=== PATIENT | male | born 1960 | race Caucasian/White ===

== ENCOUNTER 2017-08-04 08:58 | Day surgery (SDC) | payer BC ==
[~2017-08-04] VITALS: Ht 167.6 cm; Wt 75.8 kg
[2017-08-04] VITALS (19 sets, daily range): BP systolic 122–148; BP diastolic 64–88; PULSE 62–80; RESP 15–20; Ht 167.6 cm; Wt 75.8 kg
[~2017-08-04 08:58] MED LIST: BACTDS PO; CEPH-443 PO
[2017-08-04] MEDS ORDERED: SOD CHLORIDE 0.9% 1,000 ML IV ONE (09:00)
[2017-08-04] MEDS ORDERED: CEFAZOLIN 2 GM/50 ML (PMX) 50 ML IVPB ONE (09:00)
[2017-08-04] MEDS ORDERED: FINA5TAB4 PO (10:12)
[2017-08-04] MEDS ORDERED: TAMS0.4C2 PO (10:12)
[2017-08-04 10:14] LABS: BASOPHILS % 0.6 % (0.0-2.0); EOSINOPHILS # 0.1 10^3/ul (0.0-0.5); EOSINOPHILS % 1.9 % (0.0-7.0); HEMATOCRIT 47.2 % (42.0-52.0); HEMOGLOBIN 16.2 g/dl (14.0-18.0); LYMPHOCYTES # 1.8 10^3/ul (0.8-2.9); LYMPHOCYTES % 27.7 % (15.0-51.0); MEAN CORPUSCULAR HEMOGLOBIN 29.1 pg (29.0-33.0); MEAN CORPUSCULAR HGB CONC 34.3 g/dl (32.0-37.0); MEAN CORPUSCULAR VOLUME 84.7 fl (82.0-101.0); MEAN PLATELET VOLUME 9.4 fl (7.4-10.4); MONOCYTE # 0.7 10^3/ul (0.3-0.9); MONOCYTES % 10.5 % (0.0-11.0); NEUTROPHIL # 3.8 10^3/ul (1.6-7.5); PLATELET COUNT 149 10^3/UL (140-415); RED BLOOD COUNT 5.57 10^6/ul (4.70-6.10); RED CELL DISTRIBUTION WIDTH 12.5 % (11.5-14.5); WHITE BLOOD COUNT 6.4 10^3/ul (4.8-10.8)
[2017-08-04 10:44] LABS: INR 0.99; PROTIME 13.1 Sec (12.2-14.2)
[2017-08-04 10:45] LABS: ALBUMIN 4.4 g/dl (3.3-4.9); ALBUMIN/GLOBULIN RATIO 1.37; BILIRUBIN,INDIRECT 1.5 mg/dl (0-1.1); BILIRUBIN,TOTAL 1.5 mg/dl (0.2-1.3); CALCIUM 9.1 mg/dl (8.4-10.2); CREATININE 0.77 mg/dl (0.61-1.24); PARTIAL THROMBOPLASTIN TIME 30.7 Sec (25.0-35.0); POTASSIUM 4.1 mmol/L (3.5-5.1); TOTAL PROTEIN 7.6 g/dl (6.1-8.1)
[2017-08-04] MEDS ORDERED: DIPHENHYDRAMINE 50 MG INJ IV PRN (11:00)
[2017-08-04] MEDS ORDERED: hydrALAzine 20 MG INJ IV PRN (11:00)
[2017-08-04] MEDS ORDERED: LABETALOL HCL 20MG INJ IV PRN (11:00)
[2017-08-04] MEDS ORDERED: ONDANSETRON 4 MG INJ IV PRN (11:00)
[2017-08-04] MEDS ORDERED: HYDROmorphONE (0.2 MG/ML) 10ML SYG IV PRN (11:00)
[2017-08-04] MEDS ORDERED: PROCHLORPERAZINE 10 MG INJ IV PRN (11:00)
[2017-08-04] MEDS ORDERED: MEPERIDINE 25 MG INJ IV PRN (11:00)
[2017-08-04] MEDS ORDERED: OXYCODONE/ACETAMINOPHEN (5/325) TAB PO PRN (11:00)
[2017-08-04] MEDS ORDERED: MIDAZOLAM 1 MG/ML 2 ML INJ ONE (11:01)
[2017-08-04] MEDS ORDERED: PROPOFOL 20 ML ONE (11:01)
[2017-08-04] MEDS ORDERED: ROCURONIUM 50 MG INJ ONE (11:01)
[2017-08-04] MEDS ORDERED: SUCCINYLCHOLINE CHLORIDE 100 MG/5 ML SYG IV ONE (11:01)
[2017-08-04] MEDS ORDERED: FENTAnyl 50 MCG/ML VIAL ONE (11:01)
[2017-08-04] MEDS ORDERED: LIDOCAINE 2% (SDV) 5 ML INJ ONE (11:01)
[2017-08-04] MEDS ORDERED: BUPIVACAINE 0.5%/EPI (SDV) 30 ML INJ ONE (11:21)
[2017-08-04] MEDS ORDERED: FAMOTIDINE 20 MG INJ ONE (11:46)
[2017-08-04] MEDS ORDERED: ONDANSETRON 4 MG INJ ONE (11:46)
[2017-08-04] MEDS ORDERED: DEXAMETHASONE 4 MG/ML 1 ML INJ ONE (11:46)
[2017-08-04] MEDS ORDERED: EPHEDrine SULFATE 50 MG/5 ML SYG ONE (12:18)
[2017-08-04] MEDS ORDERED: HYDROmorphONE 2 MG/ML SYG ONE (12:39)
[2017-08-04] MEDS ORDERED: POLYMYXIN/BACITRACIN 1L IRRIG ONE (12:46)
[2017-08-04] MEDS ORDERED: GLYCOPYRROLATE 0.4 MG INJ ONE (13:07)
[2017-08-04] MEDS ORDERED: NEOSTIGMINE 3 MG/3 ML SYRINGE ONE (13:07)
--- NOTE | 2017-08-04 13:34 | SIPON ---
Date/Time of Note Date/Time of Note DATE: 08/04/17 TIME: 13:32 Operative Report Preoperative Diagnosis Posterior thoracic mass and incarcerated right inguinal hernia Postoperative Diagnosis Same Operation/Procedure Performed Excision of posterior thoracic mass with local skin flap advancement closure and repair of incarcerated right inguinal hernia Surgeon see signature line malt specifications control assistant Dr Andujar Anesthesia: general Estimated blood loss: 10 - 50 ml's Transfusion Required none Specimen Posterior thoracic mass Grafts/Implants none Complications none JUAN BENOIT MD Aug 04, 2017 13:34
[2017-08-04] MEDS: FENTAnyl 50 MCG/ML VIAL IV PRN ×4 (13:41→14:02)
--- NOTE | 2017-08-04 14:49 | OPR ---
DATE OF OPERATION: 08/04/2017 PREOPERATIVE DIAGNOSES: 1. Posterior thoracic mass. 2. Incarcerated right inguinal hernia. POSTOPERATIVE DIAGNOSES: 1. Posterior thoracic mass. 2. Incarcerated right inguinal hernia. OPERATION PERFORMED: 1. Excision of posterior thoracic mass with local skin flap advancement closure. 2. Repair of incarcerated right inguinal hernia with mesh. ANESTHESIA: General. ANESTHESIOLOGIST: Dr. Burt. SURGEON: Pedro Hancock MD PATIENT SUPPORT TECH: Aryan Andujar MD INDICATIONS FOR PROCEDURE: The patient is a 57-year-old male who presented with a large and longsta nding right inguinal hernia and requested repair. He also requested that a benign cystic mass from his posterior thorax be removed at the same time. He consented and was scheduled for surgery. DESCRIPTION OF PROCEDURE: The patient was brought to the operating theater, placed under general en dotracheal tube anesthesia. He was then put in the lateral position with the right side up. The po sterior thorax was shaved, prepped and draped in usual sterile fashion. The cystic lesion which was visually obvious and contained the punctum was identified and a decision was made to excise the pun ctum with a portion of the skin in an elliptical fashion. An incision was made with 15 blade scalpe l and subcutaneous tissue was then dissected with combination of sharp dissection and cautery. The entire mass with the attached skin was then elevated, transected, and sent for pathologic analysis. The wound was irrigated. Minimal bleeding was controlled with cautery. The area was then infiltra carlene with 0.5% Marcaine local anesthetic with epinephrine, and the skin was reapproximated with 2-0 n ylon sutures in vertical mattress fashion. A sterile dressing was then applied. The patient was th en placed into the supine position and the right groin region was shaved, prepped and draped in usua l sterile fashion. Dr. Hancock then rescrubbed and changed his gloves and gown as did Dr. Andujar, and reentered the room. An approximately 4 to 5 cm incision was made in the right groin approximately transecting the location of the internal and external rings. Subcutaneous tissue was dissected with cautery down through Isma's fascia. The aponeurosis of the external oblique was identified and i ncised in the direction of the fibers through the external ring. With blunt dissection, medial and lateral flaps were created. The ilioinguinal and iliohypogastric nerves were identified and kept ou t of harm's way. The spermatic cord was then elevated off the right pubic tubercle. There was a la rge sac identified with it. The sac was meticulously dissected off the cord structures, ligated at its base to close the internal ring. The decision was then made to also reinforce the repair with m esh, since there was also a component of a direct hernia noted. A mesh was cut to size and sutured and laid over the inguinal floor. It was sutured laterally to the inguinal ligament with a running 2-0 Prolene suture. A small slot was cut superiorly to facilitate cord transgression and the cord w as brought through the slot and the distal lateral portion of the slot was then sutured to the super ior aspect of the inguinal ligament also with a running 2-0 Prolene suture. The medial side was the n sutured with a 2-0 Prolene suture in running fashion to the abdominal wall fascia. The wound was irrigated and ilioinguinal and iliohypogastric nerve block was performed with 0.5% Marcaine local an esthetic. There was no evidence of bleeding. The aponeurosis was then reapproximated with a runnin g 4-0 Vicryl suture. The subcutaneous tissue was irrigated with Betadine, and the skin incision was reapproximated with skin bryant. Patient tolerated both procedures well. Total blood loss was ap proximately 30 mL. There were no complications and the patient was transported in stable condition to the recovery room. Dictated By: PEDRO SHAH/TOM Conf#: [id number] DID#: [id number]
== END 2017-08-04 16:00 | disposition home or self-care (01) ==
LOC: SDS 08:58 → REC 08:58 → UNDOADMIN 08:58 → SDS 16:00 → UNDODISIN 16:00
PROVIDERS: ATTEND Surgery Surgical Oncology
DX: K40.30 Unilateral inguinal hernia, with obstruction, without gangrene, not specified as recurrent (principal); L72.0 Epidermal cyst; N40.0 Benign prostatic hyperplasia without lower urinary tract symptoms
CPT/HCPCS: 80053; 85025; 85610; 85730; 88307; C1781; J0690; J1100; J1170; J2175; J2250; J2405; J2710; J3010; J7030

== ENCOUNTER 2018-08-12 07:56 | Day surgery (SDC) | END 2018-08-12 09:34 | disposition home or self-care (01) ==

== ENCOUNTER 2019-07-21 11:40 | Day surgery (SDC) | payer BC ==
[~2019-07-21] VITALS: Ht 172.7 cm; Wt 78.0 kg
[2019-07-21] VITALS (9 sets, daily range): BP systolic 119–166; BP diastolic 85–108; PULSE 76–86; RESP 16–20; Ht 172.7 cm; Wt 78.0 kg
[~2019-07-21 11:40] MED LIST changes: +FINA5TAB4 PO; +TAMS0.4C2 PO
[2019-07-21] MEDS ORDERED: LACTATED RINGER'S 1,000 ML IV SCH (12:30)
[2019-07-21] MEDS ORDERED: FENTAnyl 50 MCG/ML VIAL ONE (13:33)
[2019-07-21] MEDS ORDERED: PROPOFOL 20 ML ONE (13:33)
[2019-07-21] MEDS ORDERED: CEFAZOLIN 1 GM INJ ONE (13:33)
[2019-07-21] MEDS ORDERED: HYDROmorphONE 1 MG/5 ML IV SYRINGE IV PRN ×3 (14:00)
[2019-07-21] MEDS ORDERED: FENTAnyl 50 MCG/ML VIAL IV PRN ×3 (14:00)
[2019-07-21] MEDS ORDERED: OXYCODONE/ACETAMINOPHEN (5/325) TAB PO PRN ×2 (14:00)
[2019-07-21] MEDS ORDERED: DIPHENHYDRAMINE 50 MG INJ IV PRN (14:00)
[2019-07-21] MEDS ORDERED: ONDANSETRON 4 MG INJ IV PRN (14:00)
[2019-07-21] MEDS ORDERED: LABETALOL HCL 20MG INJ IV PRN (14:00)
[2019-07-21] MEDS ORDERED: hydrALAzine 20 MG INJ IV PRN (14:00)
[2019-07-21] MEDS ORDERED: MEPERIDINE 25 MG INJ IV PRN (14:00)
== END 2019-07-21 17:25 | disposition home or self-care (01) ==
LOC: SDS 11:40
PROVIDERS: ATTEND Urology
DX: N21.0 Calculus in bladder (principal)
CPT/HCPCS: 52317; 88300; J0690; J2405; J3010; Z7512; Z7610